=== PATIENT | female | born 1945 | race Caucasian/White ===

== ENCOUNTER 2017-11-30 06:32 | Day surgery (SDC) | payer OTHER ==
[2017-11-16 08:57] VITALS: BMI 26.0
[2017-11-16 09:53] LABS: BASO % 0.4 %; BASO ABS # 0.04 K/uL (0-0.2); EOS % 2.6 %; EOS ABS # 0.25 K/uL (0-0.5); HEMATOCRIT 33.3 % (37-47); HEMOGLOBIN 10.4 g/dL (12.0-16.0); IG# 0.13 K/uL (0.00-0.02); LYMPH % 21.3 %; LYMPH ABS # 2.02 K/uL (1.2-3.4); MEAN CELL VOLUME 104.4 fL (80-100); MEAN CORPUSCULAR HEMOGLOBIN 32.6 pg (25-34); MEAN CORPUSCULAR HGB CONC 31.2 g/dl (32-36); MEAN PLATELET VOLUME 9.2 fL (7.4-10.4); MONO % 10.4 %; MONO ABS # 0.99 K/uL (0.11-0.59); NEUT % 63.9 %; NEUT ABS # 6.07 K/uL (1.4-6.5); NUCLEATED RED BLOOD CELL ABS 0.03 K/uL (0-0); PLATELET COUNT 233 K/uL (130-400); RED CELL DISTRIBUTION WIDTH CV 16.2 % (11.5-14.5); RED CELL DISTRIBUTION WIDTH SD 59.7 fL (36.4-46.3)
[2017-11-16 10:18] LABS: CALCIUM 9.3 mg/dl (8.5-10.1); CREATININE 4.01 mg/dl (0.60-1.20); POTASSIUM 4.9 mmol/L (3.5-5.1)
--- NOTE | 2017-11-16 10:58 | DIAGNOSTIC IMAGING REPORT ---
CHEST 2 VIEWS ROUTINE CLINICAL HISTORY: Preoperative chest COMPARISON STUDY: No previous studies for comparison. FINDINGS: The heart is at the upper limits of normal in size. There is mild elevation/eventration right hemidiaphragm. There is no failure. There is no focal pulmonary consolidation. There are no pleural effusions. There is a right sixth rib fracture. This appears subacute.[ IMPRESSION: No active disease in the chest. Electronically signed by: Valdez Olson M.D. 11/16/2017 10:57 AM Dictated Date/Time: 11/16/2017 10:56 AM
[~2017-11-30] VITALS: Ht 160 cm; Wt 65.4 kg
[~2017-11-30 06:32] MED LIST: ATOR-22 PO; B-COCAP20 PO; CARB25TA12 PO; CHOL1000 PO; CIPROFLOXACIN 200MG / D5W IV SCH; GABA-113 PO; HMLIS INJ; INSU100I23 INJ; ISOS-11 PO; KFL/250 PO; LEVE500T PO; LSX/40 PO; MELA1TAB5 PO; METO25TA56 PO; METO5TAB25 PO; MONT1TAB5 PO; NMN10 PO; PANT40TA2 PO; PLV75 PO; RANO500T PO; SEE NOTES; SEVE800T7 PO; SODIUM CHLORIDE 0.9% 1000ML 1,000 ML IV SCH; VENL150T33 PO; [UNRECOGNIZED DRUG - OTHER] TOP
[2017-11-30 07:07] VITALS: Ht 160 cm; Wt 65.4 kg
--- NOTE | 2017-11-30 07:18 | History & Physical Bridge Note ---
H&P Re-Evaluation Bridge Note: I have examined the patient, reviewed the History & Physical and in the interval since the performance of the History & Physical I have noted the following changes of clinical significance: No changes noted
[2017-11-30] MEDS ORDERED: OXYC7.5T65 PO (07:23)
[2017-11-30] MEDS ORDERED: CEPH-571 PO (07:23)
[2017-11-30] MEDS ORDERED: FLUC100T4 PO (07:23)
[2017-11-30] MEDS ORDERED: FENTANYL CITRATE INJ 50 MCG/1 ML 2 ML VIAL ONE (07:34)
[2017-11-30] MEDS ORDERED: EpHEDrine SULFATE INJ 50 MG/ML AMP IV PRN (07:45)
[2017-11-30] MEDS ORDERED: ONDANSETRON INJ 2 MG/ML 2 ML VIAL IV PRN (07:45)
[2017-11-30] MEDS ORDERED: ATROPINE SULFATE 0.1 MG/ML 5ML SYR IV PRN (07:45)
[2017-11-30 07:46] LABS: POTASSIUM 4.2 mmol/L (3.5-5.1)
--- NOTE | 2017-11-30 08:04 | Discharge Instructions ---
Discharge Instructions Date of Service November 30, 2017. Admission Reason for Admission: Bladder Lesions Discharge Discharge Diagnosis / Problem: Gross Hematuria. Bladder lesion Discharge Goals Goal(s): Decrease discomfort, Improve function Activity Recommendations Activity Limitations: resume your previous activity Lifting Limitations: gradually increase as tolerated Exercise/Sports Limitations: gradually increase as tolerated Shower/Bathe: no limitations . Instructions / Follow-Up Instructions / Follow-Up May have blood in urine. May have pelvic pain. Follow up as ordered. Monitor for fevers or chills. Call with any issues. Plan to have dialysis tomorrow. Current Hospital Diet Patient's current hospital diet: Discharge Diet Recommended Diet: Regular Diet Procedures Procedures Performed: Cystoscopy with biopsy and fulguration Pending Studies Studies pending at discharge: no Medical Emergencies . Who to Call and When: Medical Emergencies: If at any time you feel your situation is an emergency, please call 911 immediately. . Non-Emergent Contact Non-Emergency issues call your: Primary Care Provider, Urologist . . "Provider Documentation" section prepared by Jesus Soler. .
[2017-11-30] MEDS ORDERED: OXYCODONE/ACETAMINOPHEN 7.5-325 TAB PO PRN (08:15)
[2017-11-30] MEDS ORDERED: PHENYLEPHRINE 100MCG/ML 5ML SYR ONE (08:40)
[2017-11-30] MEDS ORDERED: PROPOFOL IV EMULSION 10 MG/ML 20 ML VIAL ONE (08:40)
[2017-11-30] MEDS ORDERED: ONDANSETRON INJ 2 MG/ML 2 ML VIAL ONE (08:40)
[2017-11-30] MEDS ORDERED: GLYCOPYRROLATE INJ 0.2 MG/ML VIAL ONE (08:40)
--- NOTE | 2017-11-30 08:42 | [facility] Operative Report ---
Operative Report Operative Date November 30, 2017. Pre-Operative Diagnosis Hematuria, Bladder lesion Post-Operative Diagnosis Same Procedure(s) Performed Cystoscopy with biopsy and fulguration Surgeon Ryder Estimated Blood Loss Minimal Findings Irritated lesions of base of bladder. Specimens Biopsy bladder Drains 18 Fr Shah Anesthesia Type MAC Complication(s) none Disposition Recovery Room / PACU Indications Patient with hematuria and issues. Risks and benefits discussed at length after finding suspicious lesions of bladder on office cystoscopy Description of Procedure Patient was consented and brought back to the operating room. Patient was placed under anesthesia in the supine position and moved to the dorsal lithotomy position. Patient was prepped and draped in the regular sterile fashion. A time out was completed. A 30degree Cystoscope was placed into the bladder and the entire bladder was examined. The UO's were identified. The entire bladder was visualized. Irritated lesions were noted in the base of the bladder. These have improved since office cystoscopy and antibiotic and antifungal treatment. A cold cup was selected and the area was biopsied. These were sent for pathologic analysis. The area was then fulgurated with bugbee cautery. A total of five biopsies of the posterior wall/base were taken. The bladder was emptied. It was reassessed and left partially full. The scope was removed and an 18 Fr Shah was placed and set to drainage. The patient was cleaned, aroused from anesthesia, and transferred to the pacu in stable condition having tolerated the procedure well with no complications. I was present and participated in all aspects of the procedure. The patient will be monitored in the PACU until transferred. I attest to the content of the Intraoperative Record and any orders documented therein. Any exceptions are noted below.
[2017-11-30] MEDS: FENTANYL CITRATE INJ 50 MCG/1 ML 2 ML VIAL IV PRN ×6 (09:05→09:41)
[2017-11-30] MEDS ORDERED: NURSING VERBAL MED ORDER ONE (09:43)
[2017-11-30 10:07] VITALS: BP 85/45; PULSE 76; TEMP 36.6; O2SAT 99
[2017-11-30 10:45] VITALS: BP 102/55; PULSE 71; TEMP 36.6; O2SAT 99
--- NOTE | 2017-11-30 13:50 | Anesthesiology Progress Note ---
Anesthesia Post Op Note Date & Time November 30, 2017 at 13:49 Vital Signs Pain Intensity: 5 Vital Signs Past 12 Hours Date Time Temp Pulse Resp B/P (MAP) Pulse Ox O2 Delivery O2 Flow Rate FiO2 11/30/17 10:45 36.6 71 18 102/55 99 Room Air 11/30/17 10:07 36.6 76 18 85/45 99 Room Air 11/30/17 10:00 36.6 75 14 99/52 100 Room Air 11/30/17 09:50 36.6 73 14 114/61 100 Room Air 11/30/17 09:40 76 14 115/64 99 Nasal Cannula 2 11/30/17 09:30 80 14 93/54 99 Nasal Cannula 2 11/30/17 09:20 84 14 99/52 88 Nasal Cannula 2 11/30/17 09:10 77 14 98/59 96 Oxymask 10 11/30/17 09:00 75 14 102/57 100 Oxymask 10 11/30/17 08:49 36.6 72 14 103/57 100 Oxymask 10 Notes Mental Status: alert / awake / arousable, participated in evaluation Pt Amnestic to Procedure: Yes Nausea / Vomiting: adequately controlled Pain: adequately controlled Airway Patency, RR, SpO2: stable & adequate BP & HR: stable & adequate Hydration State: stable & adequate Anesthetic Complications: no major complications apparent
== END 2017-11-30 11:20 | disposition home or self-care (01) ==
LOC: C.ACU 06:32
PROVIDERS: ATTEND Urology
DX: N30.91 Cystitis, unspecified with hematuria (principal); M19.90 Unspecified osteoarthritis, unspecified site; J44.9 Chronic obstructive pulmonary disease, unspecified; E11.9 Type 2 diabetes mellitus without complications; E78.00 Pure hypercholesterolemia, unspecified; I12.9 Hypertensive chronic kidney disease with stage 1 through stage 4 chronic kidney disease, or unspecified chronic kidney disease; K21.9 Gastro-esophageal reflux disease without esophagitis; I25.10 Atherosclerotic heart disease of native coronary artery without angina pectoris; E78.5 Hyperlipidemia, unspecified; I73.9 Peripheral vascular disease, unspecified; R56.9 Unspecified convulsions; G20 Parkinson's disease; I25.2 Old myocardial infarction; Z86.73 Personal history of transient ischemic attack (TIA), and cerebral infarction without residual deficits; Z83.3 Family history of diabetes mellitus; Z79.4 Long term (current) use of insulin; Z88.2 Allergy status to sulfonamides; Z88.6 Allergy status to analgesic agent; Z88.1 Allergy status to other antibiotic agents; Z79.02 Long term (current) use of antithrombotics/antiplatelets; Z95.5 Presence of coronary angioplasty implant and graft; Z99.2 Dependence on renal dialysis